=== PATIENT | female | born 1995 | race Caucasian/White ===

== ENCOUNTER 2018-07-10 16:02 | Emergency (ER) | payer OTHER ==
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
[2018-07-10 16:49] VITALS: BP 135/65
== END 2018-07-10 16:46 | disposition home or self-care (01) ==
DX: S01.81XA Laceration without foreign body of other part of head, initial encounter (principal); W22.02XA Walked into lamppost, initial encounter; F10.920 Alcohol use, unspecified with intoxication, uncomplicated

== ENCOUNTER 2018-09-21 10:59 | Emergency (ER) | payer BC, OTHER ==
[2018-09-21] MEDS ORDERED: NS 1,000 ML IV ONE (11:47)
[2018-09-21] MEDS ORDERED: ONDANSETRON 4 MG/2 ML VIAL IVP ONE (11:55)
[2018-09-21 11:58] LABS: PLATELET COUNT 205 10^3/uL (150-400)
[2018-09-21 13:01] VITALS: BP 112/56
[2018-09-21] MEDS ORDERED: CIPROFLOXACIN 500 MG TAB PO ONE (13:03)
[2018-09-21] MEDS ORDERED: DICYCLOMINE 10 MG CAP PO ONE (13:04)
--- NOTE | 2018-09-21 13:06 | EDPHY ---
H & P Stated Complaint: fever, stomach pain, fatigue, rash, late menstrual cycle Time Seen by Provider: 09/21/18 12:57 HPI/ROS: CHIEF COMPLAINT: The diarrhea, cramping HISTORY OF PRESENT ILLNESS: The patient is a 23-year-old female who comes to the emergency department complaining of abdominal cramping and diarrhea every 20 min that she states is watery. This began after traveling to [place] 3 days ago. She thinks that she may have got food poisoning. She also has complained of intermittent fevers and chills. She took some ibuprofen last night with moderate improvement. No vomiting. She just began her period today. No urinary complaints. Severity: Moderate Modifying factors: None REVIEW OF SYSTEMS: Constitutional: denies: chills, fever, recent illness, recent injury EENTM: denies: blurred vision, double vision, nose congestion Respiratory: denies: cough, shortness of breath Cardiac: denies: chest pain, irregular heart rate, lightheadedness, palpitations Gastrointestinal/Abdominal: See HPI Genitourinary: denies: dysuria, frequency, hematuria, pain Musculoskeletal: denies: joint pain, muscle pain Skin: denies: lesions, rash, jaundice, bruising Neurological: denies: headache, numbness, paresthesia, tingling, dizziness, weakness Hematologic/Lymphatic: denies: blood clots, easy bleeding, easy bruising Immunologic/allergic: denies: HIV/AIDS, transplant 10 systems reviewed and negative except as noted EXAM: GENERAL: Well-appearing, well-nourished and in no acute distress. HEAD: Atraumatic, normocephalic. EYES: Pupils equal round and reactive to light, extraocular movements intact, sclera anicteric, conjunctiva are normal. ENT: TMs normal, nares patent, oropharynx clear without exudates. Moist mucous membranes. NECK: Normal range of motion, supple without lymphadenopathy or JVD. LUNGS: Breath sounds clear to auscultation bilaterally and equal. No wheezes rales or rhonchi. HEART: Regular rate and rhythm without murmurs, rubs or gallops. ABDOMEN: Soft, nontender, normoactive bowel sounds. No guarding, no rebound. No masses appreciated. BACK: No CVA tenderness, no spinal tenderness, step-offs or deformities EXTREMITIES: Normal range of motion, no pitting or edema. No clubbing or cyanosis. NEUROLOGICAL: Cranial nerves II through XII grossly intact. Normal speech, normal gait. 5/5 strength, normal movement in all extremities, normal sensation , normal reflexes PSYCH: Normal mood, normal affect. SKIN: Warm, dry, normal turgor, no visible rashes or lesions. Source: Patient Exam Limitations: No limitations - Personal History LMP (Females 10-55): Over 28 Days Ago Current Tetanus Diphtheria and Acellular Pertussis (TDAP): Yes - Medical/Surgical History Hx Asthma: No Hx Chronic Respiratory Disease: No Hx Diabetes: No Hx Cardiac Disease: No Hx Renal Disease: No Hx Cirrhosis: No Hx Alcoholism: No Other PMH: Denies - Family History Significant Family History: No pertinent family hx - Social History Smoking Status: Never smoked Alcohol Use: None Drug Use: None Constitutional: Initial Vital Signs Temperature (C) 37.9 C 09/21/18 11:06 Heart Rate 133 H 09/21/18 11:06 Respiratory Rate 18 09/21/18 11:06 Blood Pressure 137/70 H 09/21/18 11:06 O2 Sat (%) 96 09/21/18 11:06 O2 Delivery Mode Room Air Allergies/Adverse Reactions: No Known Allergies Allergy (Verified 09/21/18 11:08) Home Medications: Medication Instructions Recorded Kariva 28 Day Tablet 07/10/18 Dicyclomine [Bentyl 20 MG (*)] 20 mg PO QID #30 tab 09/21/18 Medical Decision Making ED Course/Re-evaluation: Patient had lab work done at triage. She has also received IV fluids. Her heart rate has improved and her fever has resolved. Her abdominal exam is benign. Her lab work is consistent with diarrhea. Will send stool sample for analysis but will treat with a single dose of Cipro for traveler's diarrhea. Patient understands and agrees with this plan. Will also prescribe Bentyl for symptom control. Discussed follow-up as well as indications for returning to the ER. Differential Diagnosis: Partial list of the Differential diagnosis considered include but were not limited to; traveler's diarrhea, gastritis, food poisoning and although unlikely based on the history and physical exam, I also considered appendicitis , ovarian cyst, reduced, diverticulitis, volvulus. I discussed these differential diagnoses and the plan with the patient as well as the usual and expected course. The patient understands that the diagnosis is provisional and that in medicine we are not always correct and that further workup is often warranted. Usual and customary warnings were given. All of the patient's questions were answered. The patient was instructed to return to the emergency department should the symptoms at all worsen or return, otherwise to followup with the physician as we discussed. - Data Points Laboratory Results: Laboratory Results 09/21/18 11:38 09/21/18 11:38 09/21/18 09/21/18 09/21/18 11:38 11:38 11:38 WBC 13.73 10^3/uL H 10^3/uL (3.80-9.50) RBC 5.23 10^6/uL 10^6/uL (4.18-5.33) Hgb 15.1 g/dL g/dL (12.6-16.3) Hct 45.9 % % (38.0-47.0) MCV 87.8 fL fL (81.5-99.8) MCH 28.9 pg pg (27.9-34.1) MCHC 32.9 g/dL g/dL (32.4-36.7) RDW 12.7 % % (11.5-15.2) Plt Count 205 10^3/uL 10^3/uL (150-400) MPV 10.7 fL fL (8.7-11.7) Neut % (Auto) 81.5 % H % (39.3-74.2) Lymph % (Auto) 9.0 % L % (15.0-45.0) [place] % (Auto) 8.9 % % (4.5-13.0) Eos % (Auto) 0.1 % L % (0.6-7.6) Baso % (Auto) 0.1 % L % (0.3-1.7) Nucleat RBC Rel Count 0.0 % % (0.0-0.2) Absolute Neuts (auto) 11.19 10^3/uL H 10^3/uL (1.70-6.50) Absolute Lymphs (auto) 1.24 10^3/uL 10^3/uL (1.00-3.00) Absolute Monos (auto) 1.22 10^3/uL H 10^3/uL (0.30-0.80) Absolute Eos (auto) 0.01 10^3/uL L 10^3/uL (0.03-0.40) Absolute Basos (auto) 0.02 10^3/uL 10^3/uL (0.02-0.10) Absolute Nucleated RBC 0.00 10^3/uL 10^3/uL (0-0.01) Immature Gran % 0.4 % % (0.0-1.1) Immature Gran # 0.05 10^3/uL 10^3/uL (0.00-0.10) Sodium 136 mEq/L mEq/L (135-145) Potassium 3.5 mEq/L mEq/L (3.5-5.2) Chloride 103 mEq/L mEq/L (97-110) Carbon Dioxide 18 mEq/l L mEq/l (22-31) Anion Gap 15 mEq/L H mEq/L (6-14) BUN 9 mg/dL mg/dL (7-23) Creatinine 1.0 mg/dL mg/dL (0.6-1.0) Estimated GFR > 60 Glucose 84 mg/dL mg/dL (70-100) Calcium 9.0 mg/dL mg/dL (8.5-10.4) Urine Color DARK YELLOW Urine Appearance HAZY Urine pH 6.0 (5.0-7.5) Ur Specific [place] >= 1.030 (1.002-1.030) Urine Protein 2+ H (NEGATIVE) Urine Ketones 2+ H (NEGATIVE) Urine Blood 3+ H (NEGATIVE) Urine Nitrate NEGATIVE (NEGATIVE) Urine Bilirubin NEGATIVE (NEGATIVE) Urine Urobilinogen 0.2 EU EU (0.2-1.0) Ur Leukocyte Esterase NEGATIVE (NEGATIVE) Urine RBC 25-50 /hpf H /hpf (0-3) Urine WBC 0-1 /hpf /hpf (0-3) Ur Epithelial Cells 2+ /lpf H /lpf (NONE-1+) Urine Bacteria 2+ /hpf H /hpf (NONE SEEN) Urine Mucus 1+ /lpf /lpf (NONE-1+) Urine Glucose NEGATIVE (NEGATIVE) Microbiology Results: MICROBIOLOGY 09/21/18 11:30 Stool Gastrointestinal Tract Panel (PCR) - Final Campylobacter Species E.coli Enterotoxigenic (Etec) Medications Given: Discontinued Medications Ciprofloxacin (Cipro) 500 mg PO EDNOW ONE PRN Reason: Protocol Stop: 09/21/18 13:04 Last Admin: 09/21/18 13:20 Dose: 500 mg Dicyclomine HCl (Bentyl) 20 mg PO EDNOW ONE Stop: 09/21/18 13:05 Last Admin: 09/21/18 13:20 Dose: 20 mg Sodium Chloride (Ns) 1,000 mls @ 0 mls/hr IV ONCE ONE PRN Reason: Wide Open Stop: 09/21/18 11:48 Last Admin: 09/21/18 11:52 Dose: 1,000 mls Ondansetron HCl (Zofran) 4 mg IVP EDNOW ONE Stop: 09/21/18 11:56 Last Admin: 09/21/18 12:02 Dose: 4 mg Departure - Departure Disposition: Home, Routine, Self-Care Clinical Impression: Travelers' diarrhea Condition: Fair Instructions: Traveler's Diarrhea (ED) Referrals: [facility] DERAS [Other] - 2-3 days, call for appt. Prescriptions: Dicyclomine [Bentyl 20 MG (*)] 20 mg PO QID #30 tab
== END 2018-09-21 13:35 | disposition home or self-care (01) ==
DX: R19.7 Diarrhea, unspecified (principal); R50.9 Fever, unspecified; R53.83 Other fatigue; R21 Rash and other nonspecific skin eruption
CPT/HCPCS: 96374; J2405